=== PATIENT | male | born 1950 | race African-American/Black ===

== ENCOUNTER 2016-12-15 09:47 | Emergency (ER) | payer OTHER ==
[2016-12-15 10:13] VITALS: BP 125/72; PULSE 74; TEMP 98.2; BMI 28.2
--- NOTE | 2016-12-15 11:56 | PDOC ---
History of Present Illness - General Chief Complaint: Back Pain Stated Complaint: LOWER BACK PAIN, NUMBNESS TO RT FOOT Time Seen by Provider: 12/15/16 11:35 History Source: Patient Exam Limitations: No Limitations - History of Present Illness Initial Comments: CHIEF COMPLAINT: 66 y/o afebrile female with PMH HTN, HLD, DM, CHF, GERD, seizures, previous CVA (on daily aspirin) c/o right sided back pain "for months ". HISTORY OF PRESENT ILLNESS: The patient states he's had this pain for months and it feels like a "pulling". His aide who is with him states the pain became worse 4 days ago and she is concerned it could be related to his kidneys. He denies f/c, n/v/d, CP, SOB, abd pain, hematuria, dysuria, fall, trauma to back. Vital signs on arrival are within normal limits. REVIEW OF SYSTEMS: GENERAL/CONSTITUTIONAL: No fever/chills. No weakness. No weight change. HEAD, EYES, EARS, NOSE AND THROAT: No change in vision. No ear pain or discharge. No sore throat. GENITOURINARY: No dysuria, frequency, or change in urination. MUSCULOSKELETAL: No joint or muscle swelling or pain. No neck pain. +right sided back pain. SKIN: No rash or easy bruising. NEUROLOGIC: No headache, vertigo, loss of consciousness, or loss of sensation. PHYSICAL EXAM: GENERAL: The patient is awake, alert, and fully oriented, in no acute distress. He is ambulatory. HEAD: Normal with no signs of trauma. ENT: Pupils equal, round and reactive to light, extraocular movements intact, sclera anicteric, conjunctiva clear. Neck supple. BACK: No TTP of right lower back. MIld TTP of right flank. EXTREMITIES: Normal range of motion, no edema. NEUROLOGICAL: Normal speech, normal gait. CN II-XII grossly intact. Equal straight leg raise b/l. No saddle anesthesia PSYCH: Normal mood, normal affect. SKIN: Warm, dry, normal turgor, no rashes or lesions noted. Past History - Past Medical History Allergies/Adverse Reactions: Allergies Allergy/AdvReac Type Severity Reaction Status Date / Time No Known Allergies Allergy Verified 12/15/16 10:13 Home Medications: Ambulatory Orders Calcitriol [Calcitriol -] 0.25 mcg PO ASDIR 05/11/16 Cholecalciferol (Vitamin D3) [Vitamin D3 -] 1 tab PO DAILY 05/12/16 Multivitamins [Multivit ([facility])] 1 tab PO DAILY 05/12/16 Aspirin Coated [Ecotrin -] 81 mg PO DAILY #30 tablet.ec 05/13/16 Atorvastatin Ca [Lipitor] 40 mg PO HS #30 tablet 05/13/16 Carvedilol [Coreg] 12.5 mg PO Q12H #60 tablet 05/13/16 Clopidogrel Bisulfate [Plavix -] 75 mg PO DAILY #30 tablet 05/13/16 Furosemide [Lasix -] 40 mg PO DAILY #30 tablet 05/13/16 Isosorbibe Dinit/Hydralazine [Bidil Tablet] 0.5 each PO DAILY #15 tablet Levetiracetam [Keppra -] 500 mg PO BID #60 tablet 05/13/16 Lisinopril [Zestril] 2.5 mg PO DAILY #30 tablet 05/13/16 Pantoprazole Sodium [Protonix] 40 mg PO DAILY #30 tablet.dr 05/13/16 Sitagliptin Phosphate [Januvia] 25 mg PO DAILY #30 tablet 05/13/16 Spironolactone 25 mg PO DAILY #30 tablet 05/13/16 Tamsulosin HCl [Flomax -] 0.4 mg PO DAILY #30 cap.er.24h 05/13/16 Anemia: No Cancer: No Cardiac Disorders: No CVA: Yes CHF: No Dementia: (forgetful) Diabetes: Yes GI Disorders: No Disorders: No HTN: Yes Hypercholesterolemia: Yes Liver Disease: No Seizures: Yes Thyroid Disease: No - Surgical History Abdominal Surgery: No Appendectomy: Yes Cardiac Surgery: No Cholecystectomy: No Lung Surgery: No Neurologic Surgery: No Orthopedic Surgery: No - Psycho/Social/Smoking Cessation Hx Suicidal Ideation: No Smoking History: Former smoker Have you smoked in the past 12 months: No Information on smoking cessation initiated: No Hx Alcohol Use: No Drug/Substance Use Hx: No *Physical Exam - Vital Signs Last Vital Signs Temp Pulse Resp BP Pulse Ox 98.2 F 74 16 125/72 98 12/15/16 10:08 12/15/16 10:08 12/15/16 10:08 12/15/16 10:08 12/15/16 10:08 ED Treatment Course - LABORATORY CBC & Chemistry Diagram: 12/15/16 11:56 12/15/16 11:56 Medical Decision Making - Medical Decision Making A/P: 66 y/o male with multiple comorbidities c/o worsened back pain over the past 4 days. Concerned for kidney stone, UTI, possible leaking aneurysm. Plan is as follows: 1. Labs 2. UA/culture 3. CT scan of abd/pelvis CT scan abd/pelvis IMPRESSION: No aneurysm. Moderate stool retention. BUN/creatinine has doubled since April,. Spoke with the patient and his family member. They are aware of his declining renal function and have an appointment scheduled with a tool repair technician tomorrow. SPoke with Dr. Thomson in the Main ER and she agrees with my decision to discharge to home. Instructed the patient to keep his appointment scheduled for tomorrow and take TYlenol if necessary for pain. The patient verbalizes understanding of all instructions, has no further questions and is awaiting discharge. *DC/Admit/Observation/Transfer Diagnosis at time of Disposition: Renal insufficiency Back pain Qualifiers: Back pain location: low back pain Chronicity: acute Back pain laterality: right Sciatica presence: without sciatica Qualified Code(s): M54.5 - Low back pain - Discharge Dispostion Disposition: HOME Condition at time of disposition: Good - Patient Instructions Printed Discharge Instructions: DI for Low Back Pain Additional Instructions: Discharge Instructions: -Please keep your appointment with the kidney doctor scheduled for tomorrow -You can take Tylenol for pain if necessary -Return to the ER with any worsening or concerning symptoms
[2016-12-15 12:45] LABS: BASOPHIL 0.7 % (0-2.0); EOSINOPHIL 4.2 % (0-4.5); MCH 28.2 pg (25.7-33.7); MCHC 32.6 g/dl (32.0-35.9); MEAN CELL VOLUME 86.5 fl (80-96); MEAN PLT VOLUME 11.3 fl (7.5-11.1); NEUTROPHILS 58.6 % (42.8-82.8); PLATELET COUNT 179 K/MM3 (134-434); RDW 15.9 % (11.9-15.9); WHITE BLOOD COUNT 5.8 K/mm3 (4.0-10.0)
[2016-12-15 13:04] LABS: URINE APPEARANCE CLEAR; URINE BILIRUBIN NEGATIVE (NEGATIVE); URINE BLOOD NEGATIVE (NEGATIVE); URINE COLOR STRAW; URINE GLUCOSE (UA) 1+ (NEGATIVE); URINE KETONE NEGATIVE (NEGATIVE); URINE LEUK ESTERASE NEGATIVE (NEGATIVE); URINE NITRITE NEGATIVE (NEGATIVE); URINE UROBILINOGEN NEGATIVE E.U./dl (0.2-1.0)
[2016-12-15 13:07] LABS: URINE PROTEIN 1+ (NEGATIVE)
[2016-12-15 13:24] LABS: URINE HYALINE CAST 1 /lpf; URINE RBC <1 /hpf (0-3); URINE WBC <1 /hpf (3-5)
[2016-12-15 13:47] LABS: ALBUMIN 3.5 g/dl (3.4-5.0); BILIRUBIN,TOTAL 0.3 mg/dL (0.2-1.0); CALCIUM 8.6 mg/dL (8.5-10.1); CREATININE 2.7 mg/dL (0.7-1.3); TOT PROT 7.3 g/dl (6.4-8.2)
== END 2016-12-15 15:46 | disposition home or self-care (01) ==
LOC: JERFT 09:47
DX: N28.9 Disorder of kidney and ureter, unspecified (principal); I50.9 Heart failure, unspecified; I10 Essential (primary) hypertension; E11.9 Type 2 diabetes mellitus without complications; Z79.84 Long term (current) use of oral hypoglycemic drugs; E78.00 Pure hypercholesterolemia, unspecified; K21.9 Gastro-esophageal reflux disease without esophagitis; G40.909 Epilepsy, unspecified, not intractable, without status epilepticus; Z86.73 Personal history of transient ischemic attack (TIA), and cerebral infarction without residual deficits; Z79.82 Long term (current) use of aspirin
CPT/HCPCS: 36415; 74176-TC; 80053; 81003; 81015; 85025; 87086; 99282-25